=== PATIENT | male | born 1960 | race Caucasian/White ===

== ENCOUNTER 2023-05-10 00:59 | Emergency (ER) | payer MEDICAID, OTHER ==
[~2023-05-10] VITALS: Ht 165.1 cm; Wt 84.0 kg
[2023-05-10 01:12] VITALS: O2SAT 99
[2023-05-10 04:07] LABS: BASOPHILS % 0.4 % (0.0-2.0); EOSINOPHILS % 0.3 % (0.0-5.0); HEMATOCRIT. 46.2 % (42.0-52.0); HEMOGLOBIN. 15.9 g/dL (14.0-18.0); LYMPHOCYTES % 15.9 % (20.0-50.0); MEAN CORPUSCULAR HEMOGLOBIN 32.1 pg (28.0-32.0); MEAN CORPUSCULAR HGB CONC 34.4 g/dL (31.0-37.0); MEAN CORPUSCULAR VOLUME 93.2 fL (80.0-94.0); MEAN PLATELET VOLUME 8.1 fl (7.4-10.4); MONOCYTES % 8.3 % (2.0-8.0); NEUTROPHILS % 75.1 % (40.0-76.0); PLATELET 185 x1000/uL (130-400); RED BLOOD CELL COUNT 4.95 mill/uL (4.7-6.1); RED CELL DISTRIBUTION WIDTH 13.7 % (11.6-14.6); WHITE BLOOD COUNT 11.7 x1000/uL (4.5-11.0)
[2023-05-10 04:20] LABS: ALANINE AMINOTRANSFERASE 47 IU/L (10-49); ALBUMIN 4.7 g/dL (3.2-4.8); ASPARTATE AMINOTRANSFERASE 38 IU/L (<34); BILIRUBIN TOTAL 0.6 mg/dL (0.1-1.0); CALCIUM 9.8 mg/dL (8.7-10.4); CARBON DIOXIDE 28 mEq/L (21-32); CHLORIDE 107 mEq/L (98-107); CREATININE 0.8 mg/dL (0.6-1.3); GLUCOSE 167 mg/dL (70-105); POTASSIUM 3.9 mEq/L (3.5-5.1); SODIUM 141 mEq/L (136-145); UREA NITROGEN BLOOD 24 mg/dL (9-23)
[2023-05-10] MEDS ORDERED: LACT1CAP78 MT (07:55)
[2023-05-10] MEDS ORDERED: SIME125C MT (07:55)
[2023-05-10] MEDS ORDERED: POLY119P2 MT (07:55)
[2023-05-10] MEDS ORDERED: METOCLOPRAMIDE HCL 10MG TABLET PO ONE (08:00)
[2023-05-10] MEDS ORDERED: FAMOTIDINE 20MG TABLET PO ONE (08:00)
[2023-05-10] MEDS ORDERED: ACETAMINOPHEN 325MG TABLET PO ONE (08:00)
[2023-05-10] MEDS: ACETAMINOPHEN 325MG TABLET PO NR (10:00)
[2023-05-10] MEDS: FAMOTIDINE 20MG TABLET PO NR (10:00)
[2023-05-10] MEDS: METOCLOPRAMIDE HCL 10MG TABLET PO NR (10:00)
[2023-05-10 10:14] LABS: CLARITY URINE CLEAR (CLEAR); COLOR URINE DARK YELLOW (YELLOW); GLUCOSE URINE NEGATIVE (NEGATIVE); KETONES URINE TRACE (NEGATIVE); LEUKOCYTE ESTERASE URINE TRACE (NEGATIVE); NITRITE URINE NEGATIVE (NEGATIVE); OCCULT BLOOD URINE NEGATIVE (NEGATIVE); PROTEIN URINE 1+ (NEGATIVE); SPECIFIC GRAVITY URINE 1.044 (1.005-1.030)
[2023-05-10 10:24] LABS: SQUAMOUS EPITHELIAL CELL URINE 1+ /lpf (RARE/1+)
[2023-05-10 10:26] LABS: BACTERIA URINE 1+; MUCUS URINE 1+ /lpf (NONE/TRACE)
[2023-05-10 10:28] LABS: RBC URINE NONE SEEN /hpf (0-2); WBC URINE 0-2 /hpf (0-2)
[2023-05-10 11:13] VITALS: BP 148/85; PULSE 75; RESP 18; TEMP 98
== END 2023-05-10 11:32 | disposition home or self-care (01) ==
LOC: EDBD 00:59 → ER 00:59
DX: K59.00 Constipation, unspecified (principal); K56.7 Ileus, unspecified; E78.00 Pure hypercholesterolemia, unspecified; I10 Essential (primary) hypertension
CPT/HCPCS: 99284; 74176; 80053; 81003; 83690; 85025; 36415; 74018; J8597